=== PATIENT | female | born 1980 | race African-American/Black ===

== ENCOUNTER 2018-09-24 16:20 | Emergency (ER) | payer OTHER ==
--- NOTE | 2018-09-24 17:51 | EDM.PDOC ---
Scribed by Ya Leon 09/24/18 [id number] for Nila Mccarthy NP ED HPI GENERAL MEDICAL PROBLEM - General Chief Complaint: Lower Extremity Injury/Pain Stated Complaint: RT HEEL,KNEE INJURY [id number] Time Seen by Provider: 09/24/18 16:58 Source of Information: Reports: Patient, RN, RN Notes Reviewed History Limitations: Reports: No Limitations - History of Present Illness INITIAL COMMENTS - FREE TEXT/NARRATIVE: Patient presented to ER with complaint of pain to right knee and right hip. She fell during physical testing yesterday a.m. about 0400 hours. She has a bruise to her right wrist. She also has pain to the right hip and right knee. She has numbness and tingling to fingers and toes. She is sitting okay. When walking her pain is an 7-8/10. Onset Date: 09/23/18 Duration: Constant Location: Reports: Lower Extremity, Right Quality: Reports: Ache Severity: Moderate Improves with: Reports: None Worsens with: Reports: None Associated Symptoms: Reports: No Other Symptoms Right Leg Pain Score (Numeric/FACES): 7 - Related Data Allergies Allergy/AdvReac Type Severity Reaction Status Date / Time morphine Allergy Hives Verified 09/24/18 16:25 Home Meds: Home Meds Multivit-Min/Iron/Folic/[id number] [Hair, Skin and Nails Tablet] 1 each PO DAILY 11/07 [History] Vit37/Iron/Folic Acid [Prenata] 1 each PO DAILY 09/24/18 [History] Past Medical History - Past Health History Medical/Surgical History: Denies Medical/Surgical History HEENT History: Reports: None Cardiovascular History: Reports: None Respiratory History: Reports: None Gastrointestinal History: Reports: None Genitourinary History: Reports: None [employer] History: Reports: None Musculoskeletal History: Reports: None Neurological History: Reports: None Psychiatric History: Reports: None Endocrine/Metabolic History: Reports: None Hematologic History: Reports: None Immunologic History: Reports: None Oncologic (Cancer) History: Reports: None Dermatologic History: Reports: None - Infectious Disease History Infectious Disease History: Reports: None - Past Surgical History Head Surgeries/Procedures: Reports: None Social & Family History - Family History Family Medical History: Noncontributory - Tobacco Use Smoking Status *Q: Never Smoker Second Hand Smoke Exposure: No - Caffeine Use Caffeine Use: Reports: Coffee - Recreational Drug Use Recreational Drug Use: No Review of Systems - Review of Systems Review Of Systems: ROS reveals no pertinent complaints other than HPI. ED EXAM, GENERAL - Physical Exam Exam: See Below Exam Limited By: No Limitations General Appearance: Alert, WD/WN, No Apparent Distress Eye Exam: Bilateral Eye: EOMI, Normal Inspection, PERRL Ears: Normal External Exam, Normal Canal, Hearing Grossly Normal, Normal TMs Nose: Normal Inspection, Normal Mucosa, No Blood Throat/Mouth: Normal Inspection, Normal Lips, Normal Teeth, Normal Gums, Normal Oropharynx, Normal Voice, No Airway Compromise Head: Atraumatic, Normocephalic Neck: Normal Inspection, Supple, Non-Tender, Full Range of Motion Respiratory/Chest: No Respiratory Distress, Lungs Clear, Normal Breath Sounds, No Accessory Muscle Use, Chest Non-Tender Cardiovascular: Normal Peripheral Pulses, Regular Rate, Rhythm, No Edema, No Gallop, No JVD, No Murmur, No Rub GI/Abdominal: Normal Bowel Sounds, Soft, Non-Tender, No Organomegaly, No Distention, No Abnormal Bruit, No Mass (Female) Exam: Deferred Rectal (Female) Exam: Deferred Back Exam: Normal Inspection, Full Range of Motion, NT Extremities: Other (decreased range of motion of right knee and right hip. ) Neurological: Alert, Oriented, CN II-XII Intact, Normal Cognition, Normal Gait, Normal Reflexes, No Motor/Sensory Deficits Psychiatric: Normal Affect, Normal Mood Skin Exam: Other (ecchymosis right wrist) Lymphatic: No Adenopathy Course - Vital Signs Last Recorded V/S: Last Vital Signs Temp 97.2 F 09/24/18 16:30 Pulse 71 09/24/18 16:30 Resp 16 09/24/18 16:30 BP 118/72 09/24/18 16:30 Pulse Ox 100 09/24/18 16:30 - Orders/Labs/Meds Orders: Active Orders 24 hr Category Date Time Status Hip Min 2V or 3V Rt [CR] Stat Exams 09/24/18 17:08 Taken Knee 3V Rt [CR] Urgent Exams 09/24/18 17:08 Taken - Radiology Interpretation Free Text/Narrative:: Right knee xray: FINDINGS: Bones/joints: There is no evidence of acute fracture. There is no evidence of joint malalignment or dislocation. Soft tissues: Normal. IMPRESSION: There is no evidence of acute fracture. Thank you for allowing us to participate in the care of your patient. Dictated and Authenticated by: Bob Uribe DO 09/24/2018 5:27 PM Central Time ([place] & [place]) Right hip xray: FINDINGS: Bones/joints: There is no evidence of acute fracture. There is no evidence of joint malalignment or dislocation. Soft tissues: Normal. IMPRESSION: There is no evidence of acute fracture. Thank you for allowing us to participate in the care of your patient. Dictated and Authenticated by: Bob Uribe DO 09/24/2018 5:28 PM Central Time ([place] & [place]) See rad report Departure - Departure Time of Disposition: 17:43 Disposition: Home, Self-Care 01 Condition: Fair Clinical Impression: Sprain of hip, Sprain of knee - Discharge Information *PRESCRIPTION DRUG MONITORING PROGRAM REVIEWED*: No *COPY OF PRESCRIPTION DRUG MONITORING REPORT IN PATIENT RAMYA: No Instructions: Knee Sprain, Adult, [id number], Muscle Strain, [id number], Elastic Bandage and RICE Forms: ED Department Discharge Additional Instructions: Rest, ice the areas as tolerated May use Tylenol and/or ibuprofen as directed for pain May wrap the knee with TRINIDAD bandage as tolerated - My Orders Last 24 Hours: My Active Orders 09/24/18 17:08 Hip Min 2V or 3V Rt [CR] Stat Knee 3V Rt [CR] Urgent - Assessment/Plan Last 24 Hours: My Active Orders 09/24/18 17:08 Hip Min 2V or 3V Rt [CR] Stat Knee 3V Rt [CR] Urgent I have read and agree with the documentation that has been completed regarding this visit. By signing this record, I attest that the documentation was completed in my physical presence and is an accurate record of the encounter.
== END 2018-09-24 18:00 | disposition home or self-care (01) ==
LOC: DL.ED 16:20
DX: S73.101A Unspecified sprain of right hip, initial encounter (principal); S83.91XA Sprain of unspecified site of right knee, initial encounter; S60.211A Contusion of right wrist, initial encounter; Z79.899 Other long term (current) drug therapy; Z88.5 Allergy status to narcotic agent; W19.XXXA Unspecified fall, initial encounter
CPT/HCPCS: 73562-RT; 99283-25